=== PATIENT | female | born 1935 | race Caucasian/White ===

== ENCOUNTER → 2020-01-01 16:08 | Outpatient (CLI) | payer MEDICARE, BC, SELFPAY | PROVIDERS: Visit Provider Nurse Practitioner | DX: R30.0 Dysuria (principal) | CPT/HCPCS: 87077; 87086 ==

== ENCOUNTER 2020-12-02 13:33 | Emergency (ER) | payer MEDICARE, BC, SELFPAY ==
[2020-12-02 13:46] VITALS: BP 150/70; PULSE 85; RESP 16; TEMP 36.6; O2SAT 95
--- NOTE | 2020-12-02 14:51 | ED_ITS ---
HPI - Female Genitourinary General Chief complaint: Urogenital-Female Stated complaint: UTI Time Seen by Provider: 12/02/20 14:24 Source: patient Mode of arrival: Ambulatory Limitations: no limitations History of Present Illness HPI Narrative: The patient is an 85-year-old female with history of lymphoma in 2019 and frequent UTI presenting today with vaginal bleeding. She is concerned that she might actually have a UTI. She has noticed a few blood clots. She has some pressure in her lower abdomen. She denies any painful or frequent urination. No fever or chills. She has chronic ongoing right flank pain. It is non radiating. 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 She denies any nausea or vomiting. She wonders if she scratched the inside of her vagina when she inserted her hormones. But she has no pain. Related Data Previous Rx's Medication Instructions Recorded nitrofurantoin 100 mg PO BID #14 cap 11/28/16 monohydrate/macrocrystals 100 mg capsule (Macrobid) ciprofloxacin HCl 500 mg tablet 500 mg PO BID #14 tab 12/06/16 (Cipro) Allergies Allergy/AdvReac Type Severity Reaction Status Date / Time No Known Allergies Allergy Uncoded 12/23/19 11:49 Review of Systems Review of Systems Narrative: GENERAL: Denies chills, fatigue, malaise, fever, sweats, travel HEENT: Denies sinus pain, ear pain, sore throat, difficulty swallowing, neck pain RESPIRATORY: Denies dyspnea, cough, wheezing, hemoptysis, sputum. CARDIOVASCULAR: Denies chest pain, palpitations, orthopnea, edema GASTROINTESTINAL: See HPI : See HPI MUSCULOSKELETAL: Denies weakness, joint pain, or bony pain SKIN: No rash, no erythema, no pruritus NEUROLOGIC: Denies weakness, dizziness, headache, numbness, change in speech, confusion PSYCHIATRIC: No concerning psychosocial issues. 12 point review of systems is negative except for those stated above and HPI Patient History alcohol intake frequency: holidays/special occasions only Substance Use Type: does not use Exam Initial Vital Signs Initial Vital Signs: Vital Signs Temperature 97.8 F 12/02/20 13:46 Pulse Rate 85 12/02/20 13:46 Respiratory Rate 16 12/02/20 13:46 Blood Pressure 150/70 H 12/02/20 13:46 Pulse Oximetry 95 12/02/20 13:46 GENERAL: Alert well-appearing 85-year-old female appears younger than stated age HEENT: Head atraumatic,EOMI, pupils reactive, face symmetric, moist mucous membranes CARDIOVASCULAR: Regular rate and rhythm without murmurs, rubs or gallops. RESPIRATORY: Breath sounds equal bilaterally, no wheezes rales or rhonchi. ABDOMEN: Soft, mild suprapubic tenderness no right-sided pain or left finger rebound abdomen is overall soft : Mild left CVA tenderness EXTREMITIES: Normal range of motion, no clubbing or edema. Neurovascularly intact. Persistent right footdrop NEUROLOGICAL: Alert and oriented x4.Normal gait and speech. SKIN: Warm, dry, no laceration, no petechiae, no rashes or lesions. Course Orders Ordered: ED Orders 12/02/20 14:51 US pelvic complete Stat 12/02/20 14:52 CT abdomen pelvis w con Stat 12/02/20 15:23 Complete Blood Count AUTO DIFF Stat Comprehensive Metabolic Panel Stat Lipase Stat Vital Signs Vital signs: Vital Signs - 8 hr 12/02/20 13:46 12/02/20 18:01 Temperature 97.8 F Pulse Rate 85 71 Respiratory Rate 16 19 Blood Pressure 150/70 H 141/68 H Pulse Oximetry 95 97 MDM - Female Genitourinary Lab Data Result diagrams: 12/02/20 15:23 12/02/20 15:23 Labs: Lab Results 12/02/20 12/02/20 Range/Units 15:23 15:23 WBC 5.6 (4.5-11.0) X10^3/uL RBC 4.15 (4.0-5.2) X10^6/uL Hgb 12.8 (12.0-16.0) g/dL Hct 38.2 (36-46) % MCV 92.2 (80-100) fL MCH 30.9 (26-34) PG MCHC 33.5 (30-36) % RDW 14.7 (11.6-14.8) % Plt Count 202 (150-400) X10^3/uL Neut % (Auto) 57.8 (50-75) % Lymph % (Auto) 32.8 (25-40) % [place] % (Auto) 7.4 (3-14) % Eos % (Auto) 1.1 L (2-4) % Baso % (Auto) 0.9 (0-2) % Neut # (Auto) 3200 (1508-8107) /uL Lymph # (Auto) 1800 (8004-8667) /uL [place] # (Auto) 400 (0-900) /uL Eos # (Auto) 100 (0-450) /uL Baso # (Auto) 0 (0-100) /uL Sodium 139 (137-145) mmol/L Potassium 4.1 (3.4-5.1) mmol/L Chloride 104 (98-107) mmol/L Carbon Dioxide 29 (22-32) mmol/L BUN 23 H (7-17) mg/dL Creatinine 0.69 (0.52-1.04) mg/dL Estimated GFR > 60.0 (>60) mL/min BUN/Creatinine Ratio 33.3 H (6-22) Glucose 100 (80-110) mg/dL Calcium 10.1 (8.4-10.2) mg/dL Total Bilirubin 1.4 H (0.2-1.3) mg/dL AST 31 (14-36) IU/L ALT 25 (<35) IU/L Alkaline Phosphatase 106 (38-126) U/L Total Protein 7.0 (6.3-8.2) g/dL Albumin 4.3 (3.5-5.0) g/dL Globulin 2.7 (1.7-4.1) g/dL Albumin/Globulin Ratio 1.6 (1.0-2.8) Lipase 166 (23-300) U/L Urine Dip Bedside Urine Glucose Negative Bedside Urine Bilirubin - Negative Bedside Urine Ketone - Negative Urine Specific Ruth 1.030 Bedside Urine Occult Blood - Negative Bedside Urine pH 6.0 Bedside Urine Protein - Negative Bedside Urine Urobilinogen +/- 1mg Bedside Urine Nitrite - Negative Bedside Urine Leukocytes - Negative Esterase Imaging Data US - QA MANAGER: Radiologist's Impression: PROCEDURE: US PELVIC COMPLETE INDICATIONS: VAGINAL BLEEDING TECHNIQUE: Real-time scanning was performed of the pelvic organs, with image documentation. Additional endovaginal scanning was necessary due to incomplete visualization of the adnexal and endometrial structures by transabdominal scanning. COMPARISON: None. FINDINGS: Uterus: Uterus is normal in size at 4.4 x 3 x 2 cm. The endometrium measures 4.5 mm in combined thickness. Incidental note is made of nabothian cysts. Ovaries: Neither ovary can be seen. No adnexal masses are seen on either side. Other: No pathologic free abdominal or pelvic fluid. IMPRESSION: The endometrial stripe measures within normal limits at 4.5 mm. Dictated by: Juan Brown M.D. on 12/02/2020 at 15:51 CT scan - abdomen/pelvis: Radiologist's Impression: PROCEDURE: CT ABDOMEN PELVIS W CON INDICATIONS: lower abdominal pain hx lymphoma TECHNIQUE: After the administration of IV contrast, axial sections were acquired from the lung bases to the pubic symphysis. Coronal and sagittal reformats were performed. For radiation dose reduction, the following was used: automated exposure control, adjustment of mA and/or kV according to patient size. COMPARISON: [facility], , PELVIC COMPLETE, 12/02/2020, 16:20. FINDINGS: Image quality: Excellent. Lung bases: Unremarkable. Heart: No significant findings. ABDOMEN: Liver: Unremarkable. Gallbladder: Unremarkable. Biliary ducts: Unremarkable. Pancreas: Unremarkable. Spleen: Unremarkable. Adrenal Glands: Unremarkable. Kidneys and Ureters: Unremarkable. Stomach and Bowel: Stomach, small bowel loops, and colon are unremarkable. Peritoneum: No abnormal intraperitoneal fluid. No free air. Ventral Wall: No hernia. Abdominal Nodes: No retroperitoneal or mesenteric adenopathy by size criteria. Vessels: Aorta and inferior vena cava are normal in size. PELVIS: Pelvic Organs: Unremarkable. An atrophic uterus can be seen. Bladder: Unremarkable. Pelvic Nodes: No enlarged lymph nodes. Miscellaneous: There is a mild fat containing right inguinal hernia seen. No soft tissue masses are seen. Bones: S-shaped scoliotic curvature is seen. Age-appropriate bony degenerative changes are seen. IMPRESSION: A cause of lower abdominal pain is not seen. No masses or enlarged lymph nodes can be seen. Incidental note is made of: Fat containing right inguinal hernia S shaped scoliotic curvature Dictated by: Juan Brown M.D. on 12/02/2020 at 16:07 Approved by: Juan Brown M.D. on 12/02/2020 at 16:09 [facility] Narrative Medical decision making narrative: Patient has lower abdominal pain and pressure. Initially had some hematuria she thought however urine is negative possible vaginal bleeding. Concern for the cancer in person of 85 years old. She had a full workup including blood work CT and ultrasound all of which were overall reassuring. She has no sign of UTI in her urine. At this time no indication for antibiotics. Recommend monitoring at home. She is overall reassured with results. Discharge Plan Departure Patient Disposition: Home Clinical Impression: Abdominal pain Qualifiers: Abdominal location: lower abdomen, unspecified Qualified Code(s): R10.30 - Lower abdominal pain, unspecified Instructions: DI for Abdominal Pain-Adult Activity Restrictions/Additional Instructions: *You have been diagnosed with abdominal pain *What to do: At this time there is no sign of infection. Ultrasound CT scan and blood work are overall reassuring. No need for antibiotics at this time. *Continue to take medications as directed *Follow up with your primary care provider in 2-3 days *Return to ER if you should have increasing abdominal pain, fever, increased vaginal bleeding or any new, worsening or concerning symptoms Prescriptions: No Action nitrofurantoin monohyd/m-cryst [Macrobid] 100 MG capsule 100 mg PO BID Qty: 14 RF: 0 ciprofloxacin HCl [Cipro] 500 MG tablet 500 mg PO BID Qty: 14 RF: 0 Referrals: Miscellaneous,Doctor, MD [Primary Care Provider] -
[2020-12-02 15:35] LABS: Add Manual Diff / Slide Review NO; Basophils Absolute Auto 0 /uL (0-100); Basophils Percent Auto 0.9 % (0-2); Eosinophils Absolute Auto 100 /uL (0-450); Eosinophils Percent Auto 1.1 % (2-4); Hematocrit 38.2 % (36-46); Hemoglobin 12.8 g/dL (12.0-16.0); Lymphocytes Absolute Auto 1800 /uL (1100-4500); Lymphocytes Percent Auto 32.8 % (25-40); Mean Corpuscular HGB Conc 33.5 % (30-36); Mean Corpuscular Hemoglobin 30.9 PG (26-34); Mean Corpuscular Volume 92.2 fL (80-100); Monocytes Absolute Auto 400 /uL (0-900); Monocytes Percent Auto 7.4 % (3-14); Neutrophils Absolute Auto 3200 /uL (1500-7000); Neutrophils Percent Auto 57.8 % (50-75); Platelet Count 202 X10^3/uL (150-400); Red Blood Cell Count 4.15 X10^6/uL (4.0-5.2); Red Cell Distribution Width 14.7 % (11.6-14.8); White Blood Cell Count 5.6 X10^3/uL (4.5-11.0)
[2020-12-02 15:56] LABS: Alanine Aminotransferase 25 IU/L (<35); Albumin 4.3 g/dL (3.5-5.0); Albumin Globulin Ratio 1.6 (1.0-2.8); Alkaline Phosphatase 106 U/L (38-126); Aspartate Aminotransferase 31 IU/L (14-36); BUN Creatinine Ratio 33.3 (6-22); Bilirubin Total 1.4 mg/dL (0.2-1.3); Blood Urea Nitrogen 23 mg/dL (7-17); Calcium 10.1 mg/dL (8.4-10.2); Carbon Dioxide 29 mmol/L (22-32); Chloride 104 mmol/L (98-107); Estimated Glomerular Filt Rate > 60.0 mL/min (>60); Globulin 2.7 g/dL (1.7-4.1); Glucose 100 mg/dL (80-110); HEMOLYSIS < 15 (0-50); Lipase 166 U/L (23-300); Potassium 4.1 mmol/L (3.4-5.1); Sodium 139 mmol/L (137-145)
[2020-12-02 18:01] VITALS: BP 141/68; PULSE 71; RESP 19; O2SAT 97
== END 2020-12-02 18:02 | disposition home or self-care (01) ==
PROVIDERS: Emergency Provider Emergency Medicine
DX: R10.30 Lower abdominal pain, unspecified (principal)
CPT/HCPCS: 36415; 74177; 76830; 76856; 80053; 81003; 83690; 85025; 99283; 99284; Q9967

== ENCOUNTER → 2020-12-15 16:05 | Outpatient (CLI) | payer MEDICARE, BC, SELFPAY | PROVIDERS: Referring Provider Physician Assistant; Visit Provider Physician Assistant | DX: N34.3 Urethral syndrome, unspecified (principal) | CPT/HCPCS: 87077; 87086; 87186 ==

== ENCOUNTER → 2021-12-03 14:46 | Outpatient (CLI) | payer MEDICARE, BC, SELFPAY ==
--- NOTE | 2021-12-03 14:48 | DI.RAD.S_ITS ---
PROCEDURE: XR FOOT LT MIN 3V INDICATIONS: foot pain after fall TECHNIQUE: 3 views of the foot were acquired. COMPARISON: None. FINDINGS: Bones: No fractures or dislocations. No suspicious bony lesions. There are degenerative changes of the interphalangeal joints. Also degenerative changes of the 1st tarsometatarsal joint. Soft tissues: No tibiotalar joint effusion. Achilles tendon appears normal. IMPRESSION: No acute traumatic abnormality of the left foot. Dictated by: Jozef Patel M.D. on 12/03/2021 at 16:17 Approved by: Jozef Patel M.D. on 12/03/2021 at 16:19
== END ==
PROVIDERS: Referring Provider Physician Assistant; Visit Provider Physician Assistant
DX: M79.672 Pain in left foot (principal)
CPT/HCPCS: 73630

== ENCOUNTER → 2021-12-18 10:34 | Outpatient (CLI) | payer MEDICARE, BC, SELFPAY | PROVIDERS: Visit Provider Nurse Practitioner Family | DX: N39.0 Urinary tract infection, site not specified (principal) | CPT/HCPCS: 87077; 87086; 87186 ==

== ENCOUNTER → 2023-12-31 17:48 | Outpatient (CLI) | payer MEDICARE, BC, SELFPAY | PROVIDERS: Visit Provider Student in an Organized Health Care Education/Training Program | DX: R30.0 Dysuria (principal) | CPT/HCPCS: 87077; 87086 ==

== ENCOUNTER → 2024-11-10 17:45 | Outpatient (CLI) | payer MEDICARE, BC, SELFPAY | PROVIDERS: Visit Provider Student in an Organized Health Care Education/Training Program | DX: R30.0 Dysuria (principal) | CPT/HCPCS: 81002 ==